=== PATIENT | male | born 1995 | race Caucasian/White ===

== ENCOUNTER 2017-10-31 17:32 | Emergency (ER) | payer OTHER ==
[~2017-10-31] VITALS: Ht 170.2 cm; Wt 77.3 kg
[2017-10-31 17:53] VITALS: Ht 170.2 cm; Wt 77.3 kg
[2017-10-31] MEDS ORDERED: ROBAXIN-750750 MG PO (19:03)
[2017-10-31] MEDS ORDERED: VOLTAREN75 MG PO (19:03)
[2017-10-31 19:48] VITALS: BP 112/70
== END 2017-10-31 19:49 | disposition home or self-care (01) ==
LOC: D.ER 17:32
DX: M54.5 Low back pain (principal); M54.31 Sciatica, right side